=== PATIENT | female | born 1995 | race Caucasian/White ===

== ENCOUNTER 2016-11-11 08:35 | Emergency (ER) | payer BC ==
[2016-11-11] MEDS ORDERED: Ketorolac INJ* 60 MG/2 ML VIAL IM ONE (09:56)
[2016-11-11] MEDS ORDERED: Diazepam TAB(*) 5 MG PO ONE (09:56)
[2016-11-11] MEDS ORDERED: predniSONE TAB* 20 MG PO ONE (10:37)
[2016-11-11] MEDS ORDERED: oxyCODONE/Acetamin 5/325 MG* TAB PO ONE ×2 (10:37→13:37)
[2016-11-11] MEDS ORDERED: Naproxen TAB* 250 MG PO ONE (13:37)
[2016-11-11 14:40] VITALS: BP 122/81
--- NOTE | 2016-12-08 14:49 | ED ---
Thom Prieto SooYoung, scribed for Hiren Valdivia MD on 11/11/16 at 1052 . Back Pain - HPI Summary HPI Summary: A 21 y/o F presents to ED with c/o back pain onset yesterday. Radiates down bilat LE. Denies incontinence. Pt was shoveling dirt/gravel for several hours yesterday. She was feeling OK, but once she sat down and then got back up, she experienced severe back pain. - History of Current Complaint Chief Complaint: EDBackInjuryPain Stated Complaint: BACK PAIN, Time Seen by Provider: 11/11/16 10:33 Hx Obtained From: Patient Onset/Duration: Sudden Onset, Lasting Days - yesterday, Still Present Timing: Constant Severity Currently: Severe Pain Intensity: 10 Pain Scale Used: 0-10 Numeric Aggravating Symptom(s): Movement Associated Signs And Symptoms: Negative: Bladder Incontinence, Bowel Incontinence - Allergies/Home Medications Allergies/Adverse Reactions: Allergies Allergy/AdvReac Type Severity Reaction Status Date / Time Sulfa Antibiotics Allergy Rash Verified 11/11/16 08:41 PMH/Surg Hx/FS Hx/Imm Hx Previously Healthy: No GI History: Reports: Hx Gastroesophageal Reflux Disease Psychiatric History: Reports: Hx Anxiety Infectious Disease History: No Infectious Disease History: Denies: Traveled Outside the [place] in Last 30 Days - Social History Occupation: Unemployed - OTHER Lives: Alone Alcohol Use: Occasionally Hx Substance Use: No Substance Use Type: Reports: None Hx Tobacco Use: No Smoking Status (MU): Never Smoked Tobacco Review of Systems Negative: Fever, Chills Negative: Erythema Negative: Sore Throat Negative: Chest Pain Negative: Shortness Of Breath, Cough Negative: Abdominal Pain, Vomiting, Nausea Negative: dysuria, hematuria, incontinence Positive: Other - pos: back pain radiating to bilat LE. Negative: Edema Negative: Rash Neurological: Other - neg: dizziness All Other Systems Reviewed And Are Negative: Yes Physical Exam - Summary Physical Exam Summary: Constitutional: Well-developed, Well-nourished, Alert. (-) Distressed Skin: Warm, Dry HENT: Normocephalic; Atraumatic Eyes: Conjunctiva normal Neck: Musculoskeletal ROM normal neck. (-) JVD, (-) Stridor, (-) Tracheal deviation Cardio: Rhythm regular, rate normal, Heart sounds normal; Intact distal pulses; The pedal pulses are 2+ and symmetric. Radial pulses are 2+ and symmetric. (-) Murmur Pulmonary/Chest wall: Effort normal. (-) Respiratory distress, (-) Wheezes, (-) Rales Abd: Soft, (-) Tenderness, (-) Distension, (-) Guarding, (-) Rebound Musculoskeletal: (-) Edema; POSITIVE STRAIGHT LEG RAISE BILATERALLY; STRENGTH IN LE IS 5/5; DISTAL SENSATION INTACT Lymph: (-) Cervical adenopathy Neuro: Alert, Oriented x3 Psych: Mood and affect Normal Triage Information Reviewed: Yes Vital Signs On Initial Exam: Initial Vitals Temp Pulse Resp BP Pulse Ox 97.2 F 100 20 153/92 98 11/11/16 08:36 11/11/16 08:36 11/11/16 08:36 11/11/16 08:36 11/11/16 08:36 Vital Signs Reviewed: Yes - Juan Coma Scale Coma Scale Total: 15 Diagnostics - Vital Signs Vital Signs Temp Pulse Resp BP Pulse Ox 11/11/16 10:11 73 18 121/55 11/11/16 10:04 18 11/11/16 08:47 103 97 11/11/16 08:45 149/95 11/11/16 08:39 97.8 F 100 20 153/92 98 11/11/16 08:36 97.2 F 100 20 153/92 98 - Laboratory Lab Statement: Any lab studies that have been ordered have been reviewed, and results considered in the medical decision making process. Re-Evaluation - Re-Evaluation 1 Re-Evaluation Time: 13:36 Change: Unchanged Comment: Updating mother regardaing pt. Pt still unable/unwilling to ambulate due to pain. Will give another dose of pain meds. Back Pain Course/Dx - Course Course Of Treatment: A 21 y/o F presents to ED with c/o back pain onset yesterday. Radiates down bilat LE. Denies incontinence. Pt was shoveling dirt/ gravel for several hours yesterday. She was feeling OK, but once she sat down and then got back up, she experienced severe back pain. Pt given valium, toradol, prednisone, and percocet in ED. Will D/C home with Prednisone, Percocet, Naproxen, Lidocaine patches. - Diagnoses Provider Diagnoses: Sciatica, Lumbar strain Discharge - Discharge Plan Condition: Stable Disposition: HOME Prescriptions: Lidocaine PATCH 5%* [Lidoderm 5% Patch*] 1 patch TRANSDERM DAILY #10 patch Naproxen TAB* [Naprosyn 250 mg TAB*] 500 mg PO Q8H PRN #30 tab PRN Reason: Pain - Moderate To Severe oxyCODONE/Acetamin 5/325 MG* [Percocet 5/325 TAB*] 1 - 2 tab PO Q6H PRN #8 tab MDD 8 PRN Reason: Pain - Moderate To Severe predniSONE TAB* [Deltasone TAB*] 40 mg PO DAILY #8 tab Patient Education Materials: Lidocaine Patch (On the skin), Naproxen (By mouth) , Oxycodone/Acetaminophen (By mouth), Prednisone (By mouth), Sciatica (ED), Low Back Strain (ED) Forms: *Work Release Referrals: [facility] [place] [facility] [Outside] - 3 Days (Establish and follow up in the next 2 -3 mints. ) Non Staff,Doctor [Primary Care Provider] - Additional Instructions: Please return if you experience new or worsening pain. Establish and follow up with a primary care physician in the next 2-3 days. The documentation as recorded by the Thom amezcua SooYoung accurately reflects the service I personally performed and the decisions made by , Hiren Valdivia MD.
== END 2016-11-11 14:40 | disposition home or self-care (01) ==
LOC: ED 08:35
DX: S39.012A Strain of muscle, fascia and tendon of lower back, initial encounter (principal); M54.32 Sciatica, left side; M54.31 Sciatica, right side; X58.XXXA Exposure to other specified factors, initial encounter; Y93.H1 Activity, digging, shoveling and raking; Y92.9 Unspecified place or not applicable; K21.9 Gastro-esophageal reflux disease without esophagitis; F41.9 Anxiety disorder, unspecified; Z88.2 Allergy status to sulfonamides
CPT/HCPCS: 96372; 99283; A9270-GY; J1885; J7512